=== PATIENT | male | born 1945 | race Caucasian/White ===

== ENCOUNTER → 2020-08-04 | Outpatient (CLI) | payer OTHER, MEDICARE | LOC: HYPER 13:46 | PROVIDERS: ATTEND Emergency Medicine | DX: L89.610 Pressure ulcer of right heel, unstageable (principal); C64.9 Malignant neoplasm of unspecified kidney, except renal pelvis; E66.9 Obesity, unspecified; G47.00 Insomnia, unspecified; F41.9 Anxiety disorder, unspecified; Z96.651 Presence of right artificial knee joint; Z94.4 Liver transplant status; Z68.30 Body mass index [BMI] 30.0-30.9, adult ==